=== PATIENT | male | born 1995 | race Caucasian/White ===

== ENCOUNTER 2023-07-23 14:02 | Outpatient (CLI) | payer OTHER | END 2023-07-23 14:14 | disposition home or self-care (01) | LOC: SONOGRAMA 14:02 | PROVIDERS: ATTEND Urology | DX: Z85.47 Personal history of malignant neoplasm of testis (principal) ==

== ENCOUNTER → 2023-07-24 07:57 | Outpatient (CLI) | payer OTHER ==
[2023-07-24 08:36] LABS: HEMATOCRIT 44.6 % (39.0-48.0); HEMOGLOBIN 15.3 g/dL (13-16.00); MEAN CELL VOLUME 92.6 fL (80.0-100.00); MEAN CORPUSCULAR HEMOGLOBIN 31.8 pg (27.00-32.0); MEAN CORPUSCULAR HGB CONC 34.3 g/dl (32.0-36.0); PLATELET COUNT 244 K/uL (150-450); RED BLOOD COUNT 4.81 M/uL (4.00-6.00); RED CELL DISTRIBUTION WIDTH 12.5 % (11.5-14.5)
[2023-07-24 08:46] LABS: PH,URINE 7.5 (5.0-8.0); URINE APPEARANCE Clear; URINE BILIRRUBIN Negative (NEGATIVE); URINE BLOOD Negative; URINE COLOR Yellow; URINE GLUCOSE Negative (NEGATIVE); URINE LEUKOCYTE Negative; URINE NITRATE Negative; URINE PROTEIN Negative (NEGATIVE); URINE UROBILINOGEN 0.2 E.U./dl
[2023-07-24 08:50] LABS: URINE BACTERIA 8.8 uL (0.0-1933); URINE WBC 1.8 uL (0.0-23.2)
[2023-07-24 08:59] LABS: INR 1.04; PARTIAL THROMBOPLASTIN TIME 32.2 SECONDS (22.0-34.0); PROTHROMBIN TIME 10.9 SECONDS (9.0-11.5)
[2023-07-24 08:59] LABS: URINE EPITHELIAL CELLS 0.3 uL (0.0-38.8)
[2023-07-24 09:19] LABS: BILIRUBIN TOTAL 0.96 mg/dL (0.3-1.2); CALCIUM 9.2 mg/dL (8.5-10.1); CREATININE SERUM 0.97 mg/dL (0.70-1.30); GFR 93.55; GLOBULINA 3.6 G/DL (2.4-3.5); POTASSIUM 4.1 mEq/L (3.5-5.1); TOTAL PROTEIN 7.6 gm/dL (6.4-8.2)
== END | disposition home or self-care (01) ==
LOC: LAB 07:57
PROVIDERS: ATTEND Urology
DX: Z85.47 Personal history of malignant neoplasm of testis (principal); D68.9 Coagulation defect, unspecified

== ENCOUNTER 2023-07-31 04:34 | Day surgery (SDC) | payer OTHER ==
[~2023-07-31] VITALS: Ht 190.5 cm; Wt 111.6 kg
== END 2023-07-31 14:30 | disposition home or self-care (01) ==
LOC: CIR.AMB 04:34
PROVIDERS: ATTEND Urology
DX: C62.12 Malignant neoplasm of descended left testis (principal); Z88.6 Allergy status to analgesic agent

== ENCOUNTER 2023-08-12 09:13 | Outpatient (CLI) | payer OTHER | END 2023-08-12 09:23 | disposition home or self-care (01) | LOC: TOM 09:13 | PROVIDERS: ATTEND Urology | DX: C62.12 Malignant neoplasm of descended left testis (principal) ==